=== PATIENT | male | born 1975 ===

== ENCOUNTER 2021-11-18 12:16 | Emergency (ER) | payer BC ==
[2021-11-18 17:16] LABS: Bilirubin,Urine NEG (Negative); Blood,Urine LG (Negative); Color,Urine Yellow (Yellow); Mucus,Urine 1+ /HPF; Protein,Urine >500 mg/dL (Negative); Urobilinogen,Urine < 2.0 mg/dL (<2.0)
[2021-11-18 17:17] LABS: RBC,Urine > 182.0 /HPF (0.0-6.0)
[2021-11-18] MEDS ORDERED: LIDOCAINE-MPF (1%) 10 MG/1 ML VIAL 5 ML INFILTRATI ONE (17:22)
--- NOTE | 2021-11-18 17:34 | Emergency Department Report ---
ED General Adult HPI - General Chief complaint: Urogenital-Male Stated complaint: PAIN URINATING Time Seen by Provider: 11/18/21 16:37 Source: patient Mode of arrival: Ambulatory Limitations: No Limitations - History of Present Illness Initial comments: Patient presents with complaints of dysuria and urinary frequency x1 week. He states he saw his primary care doctor 5 days ago who prescribed a medication for an overactive bladder. He states that his urine was checked and only protein was found. He denies any penile discharge, fever/chills/sweats, testicular pain/swelling/lesions, joint pains, or history of UTIs. No flank pain per patient. He denies past medical history - Related Data Previous Rx's Medication Instructions Recorded Last Taken Type Acetaminophen/Codeine [Tylenol 1 tab PO Q8H PRN #4 tab 11/18/21 Unknown Rx /Codeine # 3 tab] Doxycycline Monohydrate 100 mg PO BID 7 Days #14 cap 11/18/21 Unknown Rx Ibuprofen [Motrin 800 MG tab] 800 mg PO Q8HR PRN #15 tablet 11/18/21 Unknown Rx Sulfamethoxazole/Trimethoprim 1 each PO BID 3 Days #6 tab 11/18/21 Unknown Rx [Bactrim DS TAB] Allergies Allergy/AdvReac Type Severity Reaction Status Date / Time No Known Allergies Allergy Unverified 11/18/21 12:36 ED Review of Systems ROS: Stated complaint: PAIN URINATING Other details as noted in HPI Constitutional: denies: chills, fever, malaise Respiratory: denies: cough, shortness of breath Cardiovascular: denies: chest pain Gastrointestinal: abdominal pain (Suprapubic). denies: nausea, vomiting, diarrhea, constipation, hematemesis, melena, hematochezia Genitourinary: urgency, dysuria, frequency, hematuria. denies: discharge, testicular pain, testicular mass Musculoskeletal: denies: back pain Skin: denies: change in color Neurological: denies: headache ED Past Medical Hx - Medications Home Medications: Home Medications Medication Instructions Recorded Confirmed Last Taken Type Acetaminophen/Codeine [Tylenol 1 tab PO Q8H PRN #4 tab 11/18/21 Unknown Rx /Codeine # 3 tab] Doxycycline Monohydrate 100 mg PO BID 7 Days #14 cap 11/18/21 Unknown Rx Ibuprofen [Motrin 800 MG tab] 800 mg PO Q8HR PRN #15 tablet 11/18/21 Unknown Rx Sulfamethoxazole/Trimethoprim 1 each PO BID 3 Days #6 tab 11/18/21 Unknown Rx [Bactrim DS TAB] ED Physical Exam - General Limitations: No Limitations General appearance: alert, in no apparent distress - Head Head exam: Present: atraumatic, normocephalic - Eye Eye exam: Present: normal appearance - Neck Neck exam: Present: normal inspection - Respiratory Respiratory exam: Present: normal lung sounds bilaterally. Absent: respiratory distress - Cardiovascular Cardiovascular Exam: Present: regular rate, normal rhythm - GI/Abdominal GI/Abdominal exam: Present: soft, tenderness (Mild suprapubic), normal bowel sounds. Absent: distended, guarding, rebound, rigid - Back Exam Back exam: Absent: CVA tenderness (R), CVA tenderness (L) - Neurological Exam Neurological exam: Present: alert, oriented X3 - Psychiatric Psychiatric exam: Present: normal affect, normal mood - Skin Skin exam: Present: warm, dry, intact, normal color. Absent: rash ED Course Vital Signs 11/18/21 12:35 Temperature 98.0 F Pulse Rate 72 Respiratory 18 Rate Blood Pressure 133/80 O2 Sat by Pulse 97 Oximetry ED Medical Decision Making - Medical Decision Making Patient presents with complaints of dysuria and urinary frequency x1 week. He states he saw his primary care doctor 5 days ago who prescribed a medication for an overactive bladder. He states that his urine was checked and only protein was found. He denies any penile discharge, fever/chills/sweats, testicular pain/swelling/lesions, joint pains, or history of UTIs. No flank pain per patient. He denies past medical history Urine shows elevated WBCs. Suspect cystitis, however will also cover patient for gonorrhea and chlamydia. Urine culture is pending. Recommend follow-up with primary care doctor in 3 to 5 days. Discussed in detail signs and symptoms that should prompt immediate return to the ED with patient who verbalizes understanding. Patient also advised to take a daily probiotic while taking his antibiotics Critical care attestation.: If time is entered above; I have spent that time in minutes in the direct care of this critically ill patient, excluding procedure time. ED Disposition Clinical Impression: Dysuria, Cystitis Disposition: 01 HOME / SELF CARE / HOMELESS Is pt being admited?: No Condition: Stable Instructions: Dysuria, Urinary Tract Infection, Adult, [id number] Prescriptions: Sulfamethoxazole/Trimethoprim [Bactrim DS TAB] 1 each PO BID 3 Days #6 tab Doxycycline Monohydrate 100 mg PO BID 7 Days #14 cap Ibuprofen [Motrin 800 MG tab] 800 mg PO Q8HR PRN #15 tablet PRN Reason: Pain, Moderate (4-6) Acetaminophen/Codeine [Tylenol /Codeine # 3 tab] 1 tab PO Q8H PRN #4 tab PRN Reason: Pain , Severe (7-10) Referrals: PRIMARY CARE,MD [Primary Care Provider] - 3-5 Days
[2021-11-18] MEDS ORDERED: ACETAMINOPHEN 500 MG TAB PO STA (17:39)
[2021-11-18] MEDS ORDERED: IBUPROFEN 800 MG TAB PO STA (17:39)
[2021-11-18 18:54] VITALS: BP 128/87
== END 2021-11-18 18:53 | disposition home or self-care (01) ==
LOC: ED 12:16
DX: R30.0 Dysuria (principal); N30.90 Cystitis, unspecified without hematuria; Z79.899 Other long term (current) drug therapy
CPT/HCPCS: 81001; 87086; 96372; 99283; J0696; J3490